=== PATIENT | female | born 1985 | race Caucasian/White ===

== ENCOUNTER 2023-12-30 07:38 | Emergency (ER) | payer MEDICAID, OTHER ==
--- NOTE | 2023-12-30 07:48 | ED Physician Documentation ---
PD HPI MHE - Stated complaint Stated Complaint: NOVA - History obtained from History obtained from: Patient, Police - History of Present Illness Primary symptom: Psychosis (The officer brought her in had seen her yesterday at which time the patient was elated with some pressured speech but still send sickle and directable. Today is having delusional thought process and nonsensical. Some of what she says is nonhistorical or did not happen according to the deputy.), Other (The patient apparently stepped out on the ground last night. When asked why she did not have a clear answer. She is tangential with some pressured speech. Also some delusional of believing she had met with the president.) Timing - onset: How many days ago (apparently just over past few days.) Similar symptoms before: Diagnosis (Unclear diagnosis. The patient states she was hospitalized in another state unclear timing and was treated for sounds like psychosis. She states she does not take any current medications.) Review of Systems Unable to obtain: AMS (poor history of recent events) PD PAST MEDICAL HISTORY - Past Medical History Cardiovascular: None Respiratory: None Neuro: None Endocrine/Autoimmune: None Psych: Other (not certain, possible bipolar.) - Past Surgical History Past Surgical History: No - Present Medications Home Medications: Ambulatory Orders Medication Instructions Recorded Confirmed No Known Home Medications 01/26/16 12/30/23 - Allergies Allergies/Adverse Reactions: Allergies Allergy/AdvReac Type Severity Reaction Status Date / Time No Known Drug Allergies Allergy Verified 12/30/23 07:40 - Social History Does the pt smoke?: No Smoking Status: Never smoker Does the pt drink ETOH?: No Does the pt have substance abuse?: No - Immunizations Immunizations are current?: Yes PD ED PE NORMAL - Vitals Vital signs reviewed: Yes - General General: Well developed/nourished (But appearing unkempt with uncombed hair and dirt covered fingers. Her shoes and socks are wet and cool. Rest of her clothing is dry.) - HEENT HEENT: Atraumatic, Pharynx benign - Neck Neck: Supple, no meningeal sign, No adenopathy - Cardiac Cardiac: RRR, No murmur - Respiratory Respiratory: No respiratory distress, Clear bilaterally - Abdomen Abdomen: Soft, Non tender - Derm Derm: Normal color, Warm and dry - Neuro Neuro: No motor deficit, Normal speech (Her speech is discernible and she is making complete sentences. However there is some pressuring of speech and tangentiality and references to having that the president and not always directly answering questions.). No: Alert and oriented X 3 (person and sometimes place but not time nor circumstances. ) Results - Vitals Vitals: Vital Signs - 24 hr 12/30/23 12/30/23 12/30/23 07:40 14:20 19:04 Temperature 36.7 C 36.8 C 37 C Heart Rate 105 H 98 65 Respiratory 19 16 14 Rate Blood Pressure 144/92 H 100/63 96/63 O2 Saturation 99 100 100 Oxygen O2 Source Room air - Labs Labs: Laboratory Tests 12/30/23 12/30/23 12/30/23 08:05 08:06 08:06 WBC 8.8 RBC 4.50 Hgb 13.9 Hct 41.1 MCV 91.3 MCH 30.9 MCHC 33.8 RDW 12.3 Plt Count 298 MPV 8.6 Neut # (Auto) 5.8 Lymph # (Auto) 2.1 [place] # (Auto) 0.7 Eos # (Auto) 0.1 Baso # (Auto) 0.1 Absolute Nucleated RBC 0.00 Nucleated RBC % 0.0 Sodium 138 Potassium 3.7 Chloride 108 Carbon Dioxide 22 Anion Gap 8.0 BUN 16 Creatinine 0.7 Estimated GFR (MDRD) 95 Glucose 89 Calcium 9.3 Magnesium 1.9 Total Bilirubin 0.8 AST 26 ALT 21 Alkaline Phosphatase 64 Total Creatine Kinase 505 H Total Protein 6.7 Albumin 4.5 Globulin 2.2 Albumin/Globulin Ratio 2.0 Lipase < 10 L TSH 1.09 Urine Color Urine Clarity Urine pH Ur Specific [place] Urine Protein Urine Glucose (UA) Urine Ketones Urine Occult Blood Urine Nitrite Urine Bilirubin Urine Urobilinogen Ur Leukocyte Esterase Ur Microscopic Review Urine Culture Comments Urine HCG, Qual Salicylates < 1.5 Urine Opiates Screen Ur Buprenorphine Scrn Ur Oxycodone Screen Urine Methadone Screen Acetaminophen < 0.1 Ur Barbiturates Screen Ur Tricyclics Screen Ur Phencyclidine Scrn Ur Amphetamine Screen U Methamphetamines Scrn U Benzodiazepines Scrn Urine Cocaine Screen U Cannabinoids Screen Ur Drug Screen Comment Ethyl Alcohol < 10.0 SARS-CoV-2 (PCR) NOT DETECTED 12/30/23 12/30/23 08:10 08:10 WBC RBC Hgb Hct MCV MCH MCHC RDW Plt Count MPV Neut # (Auto) Lymph # (Auto) [place] # (Auto) Eos # (Auto) Baso # (Auto) Absolute Nucleated RBC Nucleated RBC % Sodium Potassium Chloride Carbon Dioxide Anion Gap BUN Creatinine Estimated GFR (MDRD) Glucose Calcium Magnesium Total Bilirubin AST ALT Alkaline Phosphatase Total Creatine Kinase Total Protein Albumin Globulin Albumin/Globulin Ratio Lipase TSH Urine Color DARK YELLOW Urine Clarity CLEAR Urine pH 6.0 Ur Specific [place] >=1.030 H Urine Protein NEGATIVE Urine Glucose (UA) NEGATIVE Urine Ketones 15 H Urine Occult Blood NEGATIVE Urine Nitrite NEGATIVE Urine Bilirubin SMALL H Urine Urobilinogen 0.2 (NORMAL) Ur Leukocyte Esterase NEGATIVE Ur Microscopic Review NOT INDICATED Urine Culture Comments NOT INDICATED Urine HCG, Qual NEGATIVE Salicylates Urine Opiates Screen NEGATIVE Ur Buprenorphine Scrn NEGATIVE Ur Oxycodone Screen NEGATIVE Urine Methadone Screen NEGATIVE Acetaminophen Ur Barbiturates Screen NEGATIVE Ur Tricyclics Screen NEGATIVE Ur Phencyclidine Scrn NEGATIVE Ur Amphetamine Screen NEGATIVE U Methamphetamines Scrn NEGATIVE U Benzodiazepines Scrn NEGATIVE Urine Cocaine Screen NEGATIVE U Cannabinoids Screen POSITIVE H Ur Drug Screen Comment CUTOFF CONC BELOW: Ethyl Alcohol SARS-CoV-2 (PCR) PD Medical Decision Making - ED course Complexity details: reviewed results, considered differential (Patient with pressured speech and elated behavior yesterday per officer and has gotten more to tangential and confabulated answers and apparent delusions of having that the president yesterday and could not remember sleeping on the ground last night. Appears manic and psychotic.), d/w patient, other (deputy) ED course: The patient was offered p.o. medicine olanzapine to help with her anxiety and symptoms. She declined at first. On second attempt offering p.o. medicine she did except with apple juice. Subsequently she had become more calmer and has been sleeping now for few hours. The DCR did elect to involuntarily commit the patient. Facility has been found and the patient will be transferred in stable condition. Departure - Departure Disposition: [facility] Psych Hosp/Unit DC/Xfer Clinical Impression: Acute psychosis Condition: Stable Record reviewed to determine appropriate education?: Yes Forms: PCP List
[2023-12-30 08:16] LABS: BASOPHILS # (AUTO) 0.1 10^3/uL (0.0-0.1); BASOPHILS % (AUTO) 0.8 %; EOSINOPHILS # (AUTO) 0.1 10^3/uL (0.0-0.7); HCT - HEMATOCRIT 41.1 % (37.0-47.0); HGB - HEMOGLOBIN 13.9 g/dL (12.0-16.0); LYMPHOCYTES # (AUTO) 2.1 10^3/uL (1.5-3.5); LYMPHOCYTES % (AUTO) 23.6 %; MEAN CORPUSCULAR HEMOGLOBIN 30.9 pg (27.0-31.0); MEAN CORPUSCULAR HGB CONC 33.8 g/dL (32.0-36.0); MEAN CORPUSCULAR VOLUME 91.3 fL (81.0-99.0); MEAN PLATELET VOLUME 8.6 fL (7.9-10.8); MONOCYTES # (AUTO) 0.7 10^3/uL (0.0-1.0); MONOCYTES % (AUTO) 8.2 %; NEUTROPHILS # (AUTO) 5.8 10^3/uL (1.5-6.6); NEUTROPHILS % (AUTO) 66.2 %; PLT - PLATELET COUNT 298 10^3/uL (130-450); RED CELL DISTRIBUTION WIDTH 12.3 % (12.0-15.0); WHITE BLOOD COUNT 8.8 x10^3/uL (4.8-10.8)
[2023-12-30 08:19] LABS: BILIRUBIN,URINE SMALL (NEGATIVE); GLUCOSE, URINE (UA) NEGATIVE (NEGATIVE); KETONES,URINE (UA) 15 mg/dL (NEGATIVE); LEUKOCYTE ESTERASE, URINE NEGATIVE (NEGATIVE); NITRITE,URINE NEGATIVE (NEGATIVE); OCCULT BLOOD,URINE NEGATIVE (NEGATIVE); PROTEIN,URINE NEGATIVE (NEGATIVE); UROBILINOGEN,URINE 0.2 (NORMAL) E.U./dL (NORMAL)
[2023-12-30] MEDS: OLANZapine ODT 5 MG TABLET TL STA ×2 (08:19→12:18)
[2023-12-30 08:21] LABS: CLARITY,URINE CLEAR (CLEAR); HCG UR QUAL NEGATIVE
[2023-12-30 08:34] LABS: AMPHETAMINE SCREEN,URINE NEGATIVE (NEGATIVE); BARBITURATE SCREEN,UR NEGATIVE (NEGATIVE); BENZODIAZEPINES SCREEN, URINE NEGATIVE (NEGATIVE); BUPRENORPHINE SCREEN, URINE NEGATIVE (NEGATIVE); COCAINE SCREEN URINE NEGATIVE (NEGATIVE); METHADONE SCREEN, URINE NEGATIVE (NEGATIVE); METHAMPHETAMINES SCREEN, URINE NEGATIVE (NEGATIVE); OPIATE SCREEN, URINE NEGATIVE (NEGATIVE); OXYCODONE SCREEN, URINE NEGATIVE (NEGATIVE); THC CANNABINOID SCREEN, URINE POSITIVE (NEGATIVE); TRICYCLIC ANTIDEPRESSANT,URINE NEGATIVE (NEGATIVE)
[2023-12-30 08:38] LABS: ALBUMIN 4.5 g/dL (3.2-5.5); ALKALINE PHOSPHATASE 64 IU/L (42-121); ALT ALANINE AMINOTRANSFERASE 21 IU/L (10-60); AST ASPARTATE AMINOTRANSFERASE 26 IU/L (10-42); BILIRUBIN,TOTAL 0.8 mg/dL (0.2-1.0); BUN - BLOOD UREA NITROGEN 16 mg/dL (6-20); CALCIUM 9.3 mg/dL (8.5-10.3); CARBON DIOXIDE - CO2 22 mmol/L (21-32); CHLORIDE 108 mmol/L (101-111); CK- CREATINE KINASE 505 IU/L (30-223); CREATININE 0.7 mg/dL (0.6-1.3); ETOH - ETHANOL < 10.0 mg/dL; GFR - MDRD 95 (>89); GLUCOSE 89 mg/dL (74-104); MAGNESIUM 1.9 mg/dL (1.7-2.3); POTASSIUM 3.7 mmol/L (3.5-4.5); SODIUM 138 mmol/L (135-145); TOTAL PROTEIN 6.7 g/dL (6.4-8.9)
[2023-12-30 08:42] LABS: ACETAMINOPHEN < 0.1 ug/mL; LIPASE < 10 U/L (11-82); SALICYLATE < 1.5 mg/dL
[2023-12-30 08:50] LABS: THYROID STIMULATING HORMONE 1.09 uIU/mL (0.34-5.60)
[2023-12-30 14:21] VITALS: O2SAT 100
[2023-12-30] MEDS: NICOTINE 14 MG PATCH TOP STA (15:28)
[2023-12-30] MEDS: diphenhydrAMINE ELIXIR 25 MG/10 ML UDC PO STA (17:05)
[2023-12-30 19:11] VITALS: BP 96/63
== END 2023-12-30 20:11 ==
LOC: ED 07:38
DX: F23 Brief psychotic disorder (principal)
CPT/HCPCS: 36415; 80053; 80143; 80179; 80306; 81003; 81025; 82077; 82550; 83690; 83735; 84443; 85025; 87635; 99283; 99285; A9270; 81001; 87086